=== PATIENT | female | born 1990 | race Caucasian/White ===

== ENCOUNTER 2016-09-15 16:33 | Emergency (ER) | payer OTHER, MEDICAID ==
[~2016-09-15] VITALS: Ht 175.3 cm; Wt 76.7 kg
[2016-09-15 17:09] LABS: HEMOGLOBIN 14.6 g/dL (11.7-16.4)
[2016-09-15 17:18] LABS: BLOOD UREA NITROGEN 14 mg/dL (7-18)
[2016-09-15 18:30] VITALS: BP 95/65
== END 2016-09-15 18:37 | disposition home or self-care (01) ==
LOC: ED 17:23
DX: R07.89 Other chest pain (principal); J45.909 Unspecified asthma, uncomplicated
CPT/HCPCS: 36415; 71010; 80048; 82040; 83735; 84439; 84443; 84703; 85025; 93005; 99285